=== PATIENT | female | born 1990 | race Hispanic/Latino ===

== ENCOUNTER 2024-10-27 16:37 | Emergency (ER) | payer BC ==
[~2024-10-27] VITALS: Ht 167.6 cm; Wt 90.7 kg
--- NOTE | 2024-10-27 17:40 | ERN ---
ED Note History of Present Illness Stated Complaint: ABDOMINAL PAIN Chief Complaint: Abdominal Pain Time Seen by MD: 16:38 Dictation: Patient is a 34-year-old female here with her with complaints of right lower quadrant pain onset this morning with nausea vomiting. She denies fever chills or changes in urination. States she is sexually active however is using control. LMP was last month. Allergies: Coded Allergies: No Known Drug Allergies (Unverified Allergy, Unknown, 10/27/24) Past Medical History Past Medical History: High Cholesterol Surgical History: Other Surgical History Other: DENTAL SX History: Not Applicable LMP: Oct 04, 2024 : 0 RN Note Reviewed/Agreed w/PFSH: Yes Review of System Dictation CONSTITUTIONAL: Negative except for HPI HEAD/FACE: Negative except for HPI EENT: Negative except for HPI RESPIRATORY: Negative except for HPI GASTROINTESTINAL/ABDOMINAL: Negative except for HPI right lower quadrant pain with nausea vomiting GENITOURINARY: Negative except for HPI MUSCULOSKELETAL: Negative except for HPI INTEGUMENTARY: Negative except for HPI NEUROLOGICAL/PSYCH: Negative except for HPI HEMATOLOGIC/LYMPHATIC: Negative except for HPI All Systems Negative, Except as noted above. 13 point review of systems assessed and all negative except for above. Initial Vital Sign VS Vital Signs Date Time Temp Pulse Resp B/P (MAP) Pulse Ox O2 Delivery O2 Flow Rate FiO2 10/27/24 17:07 98.4 98 18 132/84 99 Room Air 10/27/24 18:12 0 21 Physical Exam Dictation Vital Signs reviewed General Appearance: Alert, oriented x 3, moderate acute distress, well developed, nourished. Head and Face: non-traumatic. Eyes: PERRL, pink conjunctivas, eyelid no trauma, anterior chamber with arcus senilis. Ears: Pinnas intact and no signs of trauma or erythema ear canals clear and no discharge TM no erythema Nose: No discharge, no bleeding. Oropharynx: Mouth normal, tongue pink, pharynx clear,no erythema, tonsils no exudates, no abscesses noted, mucous membrane moist Neck: Supple, non-tender, no thyromegaly, no masses, no JVD, no bruits Breast:Deferred Chest:No tenderness, no crepitus, no paradoxical movement, no retractions Lungs:Clear, well-ventilated, symmetric, no rales, no wheezing, no rhonchi, no stridor, good breath sounds bilaterally Heart: Regular rate, regular rhythm, no murmur, no gallops Vascular: no peripheral edema, Abdomen: Soft, positive bowel sounds, nondistended, no guarding, Right lower quadrant pain with rebound tenderness Rectal: Deferred Genital: Deferred Neurological: Normal speech, motor function intact, sensory function intact Musculoskeletal: Neck nontender, full range of motion, back nontender, full range of motion, Extremities: nontender, full range of motion Skin: Color pink, dry, no turgor, no rash, no lacerations, no abrasions, no contusions. Lymphatic: Deferred Results (Laboratory/Radiology) Laboratory/Radiology Laboratory Tests Test 10/27/24 17:30 10/27/24 17:59 Urine Color YELLOW (YELLOW) Urine Appearance CLEAR (CLEAR) Urine pH 6.0 (5.0-8.0) Urine Specific [place] 1.025 (1.001-1.031) Urine Protein NEGATIVE mg/dL (NEGATIVE) Urine Glucose (UA) NEGATIVE mg/dL (NEGATIVE) Urine Ketones NEGATIVE mg/dL (NEGATIVE) Urine Occult Blood NEGATIVE (NEGATIVE) Urine Nitrate NEGATIVE (NEGATIVE) Urine Bilirubin NEGATIVE mg/dL (NEGATIVE) Urine Urobilinogen 0.2 mg/dL (0.2-1.0) Urine Leukocyte Esterase 75 Kim/uL (NEGATIVE) H Urine RBC 2-5 /HPF (0-1) H Urine WBC 6-10 /HPF (0-1) H Urine Squamous Epithelial Cells FEW /HPF (0-2) Urine Bacteria RARE /HPF (None Seen) Urine HCG, Qualitative NEGATIVE (NEGATIVE) White Blood Count 14.2 K/uL (4.8-10.8) H Red Blood Count 4.74 MIL/uL (4.00-5.50) Hemoglobin 14.0 g/dL (12.0-16.0) Hematocrit 42.1 % (36-48) Mean Corpuscular Volume 88.8 fL (79-99) Mean Corpuscular Hemoglobin 29.5 pg (27.0-33.0) Mean Corpuscular Hemoglobin Concent 33.3 g/dL (32.0-36.0) Red Cell Distribution Width 12.0 % (11.0-15.5) Platelet Count 283 K/uL (130-400) Mean Platelet Volume 11.6 fL (7.5-10.5) H Immature Granulocyte % (Auto) 0.3 % (0-1) Neutrophils (%) (Auto) 85.5 % (40.0-77.0) H Lymphocytes (%) (Auto) 11.6 % (21.0-51.0) L Monocytes (%) (Auto) 2.4 % (3.0-13.0) L Eosinophils (%) (Auto) 0.0 % (0.0-8.0) Basophils (%) (Auto) 0.2 % (0.0-5.0) Neutrophils # (Auto) 12.1 K/uL (1.8-7.7) H Lymphocytes # (Auto) 1.6 K/uL (1.0-4.8) Monocytes # (Auto) 0.3 K/uL (0.1-1.0) Eosinophils # (Auto) 0.00 K/uL (0.00-0.70) Basophils # (Auto) 0.03 K/uL (0.00-0.20) Absolute Immature Granulocyte (auto 0.04 K/uL (0-1) Nucleated Red Blood Cells 0.0 % (0.0-0.19) Sodium Level 136 mmol/L (136-145) Potassium Level 4.0 mmol/L (3.5-5.1) Chloride Level 100 mmol/L (101-111) L Carbon Dioxide Level 27 mmol/L (21-32) Blood Urea Nitrogen 12 mg/dL (7-18) Creatinine 1.0 mg/dL (0.5-1.0) Glomerular Filtration Rate Calc 76 mL/min (>90) Random Glucose 88 mg/dL (70-105) Total Calcium 8.8 mg/dL (8.5-10.1) Lipase 22 U/L (16-77) CT ABDOMEN/PELVIS W/CONTRAST CLINICAL HISTORY: Right lower quadrant pain tenderness with nausea and vomiting COMPARISON: None TECHNIQUE: Sequential axial images of abdomen and pelvis with 75 mL of Omnipaque 350 IV contrast with sagittal and coronal reconstructions. CT was performed with one or more of the following dose reduction techniques: automated exposure control, adjustment of the mA and/or kV according to patient size, or use of iterative reconstruction technique. FINDINGS: The lung bases are clear. The liver spleen gallbladder pancreas and adrenal glands and kidneys and bladder are unremarkable. Note is made of 2 large right ovarian cysts with the largest measuring 4.2 cm. The appendix is normal. There is no identified bowel obstruction. There is no free air free fluid. The uterus appears lobular. The bony structures are unremarkable. IMPRESSION: Normal appendix. Leiomyomatous uterus. 2 large ovarian cysts with the largest measuring 4.2 cm recommend ultrasound correlation ULTRASOUND REVEALS SAME BILATERAL OVARIAN CYST, NO TORSION AND BLOOD FLOW TO BOTH OVARIES NOTED Labs Reviewed?: Yes ED Course ED Course Orders Procedure Category Date Status Time Cbc With Differential LAB 10/27/24 Complete 17:38 ,Urine Test LAB 10/27/24 Complete 17:38 Urinalysis Profile LAB 10/27/24 Complete 17:38 Ct Abdomen/Pelvis CT 10/27/24 Resulted W/Contrast 17:38 0.9%Nacl 1000ml (Ns PHA 10/27/24 Complete 1000ml) 18:00 Morphine 2mg Syg PHA 10/27/24 Complete (Morphine 2mg Syg) 18:00 Ondansetron 4mg Inj PHA 10/27/24 Complete (Zofran 4mg Inj) 18:00 Lipase LAB 10/27/24 Complete 17:38 Basic Metabolic Panel LAB 10/27/24 Complete 17:38 Iohexol (Omnipaque) PHA 10/27/24 Complete 17:41 Culture Urine KRISTI 10/27/24 In Process 18:10 Us Pelvic Non-Ob US 10/27/24 Taken Limited 19:08 Ketorolac PHA 10/27/24 Complete Tromethamine 30mg/Ml 19:30 Nothing By Mouth DIET 10/28/24 Transmitted Breakfast Current Medications Medications (Trade) Dose Ordered Sig/Rah Route PRN Reason Start Time Stop Time Status Last Admin Dose Admin Iohexol (Omnipaque) 75 ml STK-MED ONCE IV 10/27/24 17:41 10/27/24 17:47 DC Ketorolac Tromethamine (toRADol) 30 mg ONCE ONCE IVP 10/27/24 19:30 10/27/24 19:31 DC 10/27/24 20:03 Morphine Sulfate (morPHINE 2MG SYG) 2 mg ONCE ONCE IVP 10/27/24 18:00 10/27/24 18:01 DC 10/27/24 17:51 Ondansetron HCl (zoFRAN 4MG INJ) 4 mg ONCE ONCE IVP 10/27/24 18:00 10/27/24 18:01 DC 10/27/24 17:50 Sodium Chloride 1,000 ml @ 0 mls/hr ONCE ONCE IV 10/27/24 18:00 10/27/24 18:01 DC 10/27/24 17:50 Vital Signs Date Time Temp Pulse Resp B/P (MAP) Pulse Ox O2 Delivery O2 Flow Rate FiO2 10/27/24 20:10 98.1 72 20 131/72 98 Room Air* 0 21 10/27/24 18:12 98.4 74 18 138/75 98 Room Air* 0 21 10/27/24 17:07 98.4 98 18 132/84 99 Room Air 2024/PATIENT AWARE THAT SHE HAS TWO LARGE OVARIAN CYST WITH NO TORSION NO APPENDICITIS. AT BEDSIDE AND SHE STATES SHE HAS AN HANDBAG FRAMER DOCTOR IN [place] AND FO LLOW HER THIS WEEK. Medical Decision Making MDM MDM: DIFFERENTIAL DIAGNOSIS: DIVERTICULITIS/APPENDICITIS/ECTOPIC /UTI/HERNIA RATIONALE: TESTS CONSIDERED AND ORDERED SECONDARY TO SHARED DECISION MAKING INCLUDE: LAB/RADIOLOGY PREVIOUS OUTSIDE RECORDS REVIEWED: OLD ER VISITS. RISK OF COMPLICATION AND/OR MORBIDITY OR MORTALITY OF PATIENT MANAGEMENT: NONE MEDICATIONS-PER MEDICATION RECONCILIATION NEED FOR HOSPITALIZATION: PATIENT DOES NOT MEET CRITERIA FOR HOSPITALIZATION. NO NEED FOR EMERGENCY MAJOR/MINOR SURGERY: NO THERE ARE NO SOCIAL CONCERNS WITH THIS PATIENT. PRESCRIPTION DRUG MANAGEMENT IBUPROFEN PRESCRIPTIONS WILL INCLUDE SYMPTOMATIC CARE PATIENT'S PRIOR EXTERNAL MEDICAL RECORDS FROM OTHER ER VISITS WERE REVIEWED BY ME INDICATED. PRIOR TESTING AND RESULTS FROM PREVIOUS VISITS WERE REVIEWED. PRIOR TESTS WERE TAKEN INTO ACCOUNT WITH MEDICAL DECISION MAKING AND RESOURCE UTILIZATION, INDEPENDENT HISTORIAN/HISTORIANS WERE USED TO OBTAIN COMPLETE MEDICAL HISTORY. I INDEPENDENTLY INTERPRETED THE TEST THAT WERE PERFORMED, RESULTS WERE REVIEWED BY ME AND CONSIDERED FINDINGS ON RADIOLOGY IF ORDERED. MEDICAL MANAGEMENT AND EXAMINATION INTERPRETATION DISCUSSIONS WERE HAD BY ME WITH OTHER QUALIFIED HEALTHCARE PROFESSIONALS INDICATED FOR THE PATIENT'S CARE. DX & DISP Disposition: Discharge Departure Impression: Primary Impression: Ovarian cyst Additional Impression: Acute cystitis Condition: Stable Scripts Amoxicillin/Potassium Clav (Amox Tr-K Clv 875-125 mg Tab) 875 Mg-125 Mg Tablet 1 EACH PO BID for 7 Days, #14 TAB 0 Refills Prov: ERASMO GOTTLIEB INJECTION OPERATOR 10/27/24 Ibuprofen (Ibuprofen 800 mg Tab) 800 Mg Tab 800 MG PO Q8H PRN for fever or pain, #30 TAB 0 Refills Prov: ERASMO GOTTLIEB INJECTION OPERATOR 10/27/24 Additional Instructions: FOLLOW-UP WITH PRIMARY CARE PROVIDER IN 1 TO 2 DAYS. TAKE MEDICATIONS DIRECTED HERE IN THE EMERGENCY ROOM. OKAY TO CONTINUE HOME MEDICATIONS UNLESS OTHERWISE DISCUSSED DURING YOUR VISIT IN THE EMERGENCY ROOM TODAY. RETURN TO YOUR NEAREST EMERGENCY ROOM IF SYMPTOMS WORSEN OR IF THERE IS NO IMPROVEMENT. CALL 911 IF YOU NEED IMMEDIATE ASSISTANCE. TAKE TYLENOL OR MOTRIN [id number] NEEDED AND IF NO CONTRAINDICATIONS ARE PRESENT. INCREASE ORAL HYDRATION. A WOUND CULTURE OR URINE CULTURE WAS ORDERED HERE IN THE EMERGENCY ROOM DEPARTMENT PLEASE FOLLOW-UP WITH PRIMARY CARE PROVIDER AND ADVISE THEM TO GET REPEAT PORTS FROM OUR FACILITY. IF YOU HAD ANY VIKTOR WRAP/SPLINTS THAT WERE APPLIED HERE, PLEASE DO NOT REMOVE THEM UNTIL YOU SEE YOUR PRIMARY CARE OR SPECIALTY. TAKE ANTIBIOTICS DIRECTED UNTIL GONE. , INCREASE YOUR WATER INTAKE., WARM COMPRESSES TO PELVIS THREE TO 4 TIMES A DAY AND TAKE IBUPROFEN WITH FOOD NEEDED FOR PAIN. FOLLOW UP WITH YOUR HANDBAG FRAMER DOCTOR IN THE NEXT 1-2 DAYS FOR MANAGEMENT OF YOUR OVARIAN CYSTS Referrals: CANDICE RICHARD PA-C (PCP) Time of Disposition: 20:24 I have reviewed the case, and I agree with, Diagnosis and Plan ERASMO GOTTLIEB NP Oct 27, 2024 17:40
[2024-10-27] MEDS ORDERED: IOHEXOL-350 75 ML VIAL IV ONE (17:41)
--- NOTE | 2024-10-27 17:45 | NUR ---
PENDING GFR & TEST RESULTS, IV SITE, & CONSENT FOR CT EXAM.
[2024-10-27] MEDS: ondanSETRON 4MG INJ IVP ONE (17:50)
[2024-10-27] MEDS: 0.9%NACL 1000ML 1,000 ML IV ONE (17:50)
[2024-10-27] MEDS: morPHINE 2 MG SYG IVP ONE (17:51)
[2024-10-27 18:06] LABS: APPEARANCE,URINE CLEAR (CLEAR); BILIRUBIN,URINE NEGATIVE (NEGATIVE); COLOR,URINE YELLOW (YELLOW); GLUCOSE, URINE (UA) NEGATIVE (NEGATIVE); KETONES,URINE NEGATIVE (NEGATIVE); LEUKOCYTE ESTERASE ,URINE 75 Leu/uL (NEGATIVE); NITRATE,URINE NEGATIVE (NEGATIVE); OCCULT BLOOD,URINE NEGATIVE (NEGATIVE); PROTEIN,URINE NEGATIVE (NEGATIVE); UROBILINOGEN,URINE 0.2 mg/dL (0.2-1.0)
[2024-10-27 18:08] LABS: BASOPHILS # (AUTO) 0.03 K/uL (0.00-0.20); BASOPHILS % (AUTO) 0.2 % (0.0-5.0); HEMATOCRIT 42.1 % (36-48); IMMATURE GRANULOCYTE ABSOLUTE 0.04 K/uL (0-1); LYMPHOCYTES # (AUTO) 1.6 K/uL (1.0-4.8); LYMPHOCYTES % (AUTO) 11.6 % (21.0-51.0); MEAN CORPUSCULAR HEMOGLOBIN 29.5 pg (27.0-33.0); MEAN CORPUSCULAR HGB CONC 33.3 g/dL (32.0-36.0); MEAN CORPUSCULAR VOLUME 88.8 fL (79-99); MONOCYTES # (AUTO) 0.3 K/uL (0.1-1.0); MONOCYTES % (AUTO) 2.4 % (3.0-13.0); NEUTROPHILS # (AUTO) 12.1 K/uL (1.8-7.7); NEUTROPHILS % (AUTO) 85.5 % (40.0-77.0); PLATELET COUNT (AUTO) 283 K/uL (130-400); RED BLOOD CELL COUNT(AUTO) 4.74 MIL/uL (4.00-5.50); WHITE BLOOD COUNT (AUTO) 14.2 K/uL (4.8-10.8)
[2024-10-27 18:09] LABS: HCG,QUALITATIVE URINE NEGATIVE (NEGATIVE)
[2024-10-27 18:10] LABS: ADD UA MICROSCOPIC YES
[2024-10-27 18:20] LABS: BACTERIA,URINE RARE /HPF (None Seen); MUCUS,URINE RARE LPF (None Seen); SQUAMOUS EPITHELIAL CELL,UR FEW /HPF (0-2)
--- NOTE | 2024-10-27 18:46 | HMCIMG ---
CT ABDOMEN/PELVIS W/CONTRAST CLINICAL HISTORY: Right lower quadrant pain tenderness with nausea and vomiting COMPARISON: None TECHNIQUE: Sequential axial images of abdomen and pelvis with 75 mL of Omnipaque 350 IV contrast with sagittal and coronal reconstructions. CT was performed with one or more of the following dose reduction techniques: automated exposure control, adjustment of the mA and/or kV according to patient size, or use of iterative reconstruction technique. FINDINGS: The lung bases are clear. The liver spleen gallbladder pancreas and adrenal glands and kidneys and bladder are unremarkable. Note is made of 2 large right ovarian cysts with the largest measuring 4.2 cm. The appendix is normal. There is no identified bowel obstruction. There is no free air free fluid. The uterus appears lobular. The bony structures are unremarkable. IMPRESSION: Normal appendix. Leiomyomatous uterus. 2 large ovarian cysts with the largest measuring 4.2 cm recommend ultrasound correlation
[2024-10-27] MEDS: ketOROlac 30MG VIAL (30MG/ML) IVP ONE (20:03)
[2024-10-27] MEDS ORDERED: IBUP-2077 PO (20:25)
[2024-10-27] MEDS ORDERED: AMOX1TAB16 PO (20:25)
[2024-10-27 20:41] VITALS: BP 127/71; PULSE 70; RESP 18; TEMP 98.2; O2SAT 98
--- NOTE | 2024-10-27 20:56 | HMCIMG ---
US PELVIC NON-OB LIMITED HISTORY: Right adnexal pain, CT negative for appendicitis. Rule out cyst versus tor COMPARISON: None FINDINGS: Uterus measures 10.9 cm in length and there is a 3 mm endometrial thickness. The right ovary measures 7.6 cm greatest dimension with 2 4 cm cysts and patent vascularity. The left ovary demonstrates a 3 cm diameter with patent vasculature. There is no adnexal mass or free fluid. Note is made of a 5.8 and a 3 cm uterine leiomyomas as was demonstrated on the CT scan. IMPRESSION: Leiomyomatous uterus. Right ovarian simple cysts with no identified torsion
== END 2024-10-27 21:05 | disposition home or self-care (01) ==
LOC: EDH 16:37
DX: N83.201 Unspecified ovarian cyst, right side (principal); E78.00 Pure hypercholesterolemia, unspecified; N30.00 Acute cystitis without hematuria
CPT/HCPCS: 99285; 74177; 96374; 76857; 96375; 96361; 80048; 83690; 85025; 87086; 81001; 81025; 36415; J1885; J2270; J7030; J2405; Q9967